=== PATIENT | female | born 1960 | race Two or more races ===

== ENCOUNTER 2017-09-01 18:35 | Emergency (ER) | payer MEDICAID, OTHER ==
[~2017-09-01] VITALS: Ht 154.9 cm; Wt 76.0 kg
[~2017-09-01 18:35] MED LIST: CLON1TAB4 PO; HYDR25TA PO; TRAM50TA3 PO
[2017-09-01] MEDS ORDERED: ACETAMINOPHEN 325MG TABLET PO ONE (20:45)
[2017-09-01] MEDS ORDERED: KETOROLAC 60MG/2ML VIAL IM ONE (20:45)
[2017-09-01 22:12] VITALS: BP 117/84
== END 2017-09-01 22:20 | disposition home or self-care (01) ==
LOC: ER 20:21
DX: M19.90 Unspecified osteoarthritis, unspecified site (principal); M25.511 Pain in right shoulder; I10 Essential (primary) hypertension; F17.200 Nicotine dependence, unspecified, uncomplicated; Z71.6 Tobacco abuse counseling; Z88.6 Allergy status to analgesic agent
CPT/HCPCS: 73030; 96372; 99284; 99406; J1885; Z7610

== ENCOUNTER 2018-03-26 18:44 | Emergency (ER) | payer MEDICAID ==
[~2018-03-26] VITALS: Ht 160 cm; Wt 83.0 kg
[2018-03-26 18:50] VITALS: BP 166/108
== END 2018-03-26 22:38 | disposition home or self-care (01) ==
LOC: ER 22:24
DX: N39.0 Urinary tract infection, site not specified (principal); I10 Essential (primary) hypertension; Z98.890 Other specified postprocedural states; Z88.5 Allergy status to narcotic agent
CPT/HCPCS: 87077; 87086; 87186; 99283; 99284

== ENCOUNTER 2019-01-01 18:21 | Emergency (ER) | payer MEDICAID ==
[~2019-01-01] VITALS: Ht 157.5 cm; Wt 88.0 kg
[~2019-01-01 18:21] MED LIST changes: +CLON1TAB12 PO; -CLON1TAB4 PO
[2019-01-01 20:22] LABS: CLARITY URINE CLOUDY (CLEAR); COLOR URINE YELLOW (YELLOW); KETONES URINE NEGATIVE (NEGATIVE); LEUKOCYTE ESTERASE URINE 3+ (NEGATIVE); NITRITE URINE NEGATIVE (NEGATIVE); OCCULT BLOOD URINE 2+ (NEGATIVE); PROTEIN URINE 1+ (NEGATIVE); SPECIFIC GRAVITY URINE 1.004 (1.005-1.030)
[2019-01-01] MEDS ORDERED: PHENAZOPYRIDINE HCL 100MG TABLET PO ONE (22:45)
[2019-01-02 03:13] VITALS: BP 136/88
== END 2019-01-02 03:30 | disposition home or self-care (01) ==
LOC: ER 18:21
DX: N39.0 Urinary tract infection, site not specified (principal); I10 Essential (primary) hypertension; F17.200 Nicotine dependence, unspecified, uncomplicated; M19.90 Unspecified osteoarthritis, unspecified site; Z88.6 Allergy status to analgesic agent; Z90.710 Acquired absence of both cervix and uterus
CPT/HCPCS: 87077; 87186; 99283